=== PATIENT | female | born 1950 | race African-American/Black ===

== ENCOUNTER 2018-09-05 00:04 | Outpatient (CLI) | payer MEDICARE, BC ==
[2018-09-05 14:11] LABS: Bilirubin Negative (Negative); Blood, Urine Trace (Negative); Clarity CLEAR (Clear); Glucose, Urine (Dipstick) Negative (Negative); Leukocyte Negative (Negative); Nitrite Negative (Negative); Protein, Urine (Dipstick) Negative (Neg-Trace); Specific Gravity, Urine 1.015 (1.002-1.036)
[2018-09-05 14:13] LABS: Bacteria/HPF None Seen HPF (None Seen); Hyaline Casts/LPF 0-3 HYALINE CAST LPF (0-3 Hyaline); Pathc Cast-AUWi Flag 0.13 (0-2.49); Squamous Epithelial 0-3 HPF (0-3); WBC/HPF None Seen HPF (0-3)
[2018-09-05 14:15] LABS: #Basophils 0.1 thou/uL (0.0-0.2); #Eosinphils 0.1 thou/uL (0.0-0.7); #Lymphocytes 3.2 thou/uL (1.20-3.40); #Monocytes 0.8 thou/uL (0.11-0.59); #Neutrophils 6.6 thou/uL (1.40-6.50); %Basophils 0.6 % (0.0-1.0); %Eosinophils 1.1 % (0.0-10.0); %Lymphocytes 29.9 % (21.0-51.0); %Monocytes 7.6 % (0.0-10.0); %Neutrophils 60.8 % (42.0-75.0); Hemoglobin 12.6 g/dL (12.0-16.0); Mean Corpuscular HGB CONC 32.5 g/dL (32.0-36.0); Mean Corpuscular Hemoglobin 29.5 pg (27.0-31.0); Mean Corpuscular Volume 90.8 fL (78.0-98.0); Mean Platelet Volume 8.2 fL (7.4-10.4); PTT 29.6 SEC (22.9-36.1); Platelet Count 323 thou/uL (130-400); Prothrombin Time 13.2 SEC (12.0-14.7); RBC Distribution Width 11.6 % (11.5-14.5); Red Blood Cell (RBC) Count 4.26 mill/uL (4.20-5.40); White Blood Cell (WBC) Count 10.8 thou/uL (4.8-10.8)
[2018-09-05 14:31] LABS: Anion Gap 11 mmol/L (10-20); BUN (Urea Nitrogen) 20 mg/dL (9.8-20.1); Calc. Creatinine Clearance 0 mL/min (70-130); Calcium 9.9 mg/dL (7.8-10.44); Carbon Dioxide 26 mmol/L (23-31); Chloride 104 mmol/L (98-107); Estimated GFR-MDRD 89; Glucose 81 mg/dL (80-115); Potassium 3.9 mmol/L (3.5-5.1); Sodium 137 mmol/L (136-145)
== END 2018-09-05 00:05 | disposition home or self-care (01) ==
LOC: LABBT 00:04
PROVIDERS: ATTEND Orthopaedic Surgery
DX: Z01.818 Encounter for other preprocedural examination (principal); M17.12 Unilateral primary osteoarthritis, left knee
CPT/HCPCS: 80048; 81001; 85025; 85610; 85730; 87081; 93005; 93010

== ENCOUNTER 2018-09-10 14:51 | Outpatient (CLI) | payer MEDICARE, BC | END 2018-09-10 14:52 | disposition home or self-care (01) | LOC: LABBT 14:51 | PROVIDERS: ATTEND Orthopaedic Surgery | DX: Z01.812 Encounter for preprocedural laboratory examination (principal); M17.12 Unilateral primary osteoarthritis, left knee | CPT/HCPCS: 86850; 86870; 86900; 86901 ==

== ENCOUNTER 2018-09-16 06:59 | Inpatient (IN) | payer MEDICARE, BC ==
[2018-09-05 12:43] VITALS: BMI 36.9
[2018-09-16] MEDS ORDERED: Vancomycin HCl 1.5 GM in Sodium Chloride 0.9% 250 ML 300 ML IVPB SCH ×2 (07:45→20:00)
[2018-09-16] MEDS ORDERED: Tranexamic Acid 1,000 MG in Sodium Chloride 0.9% 100 ML IVPB SCH (07:45)
[2018-09-16] MEDS ORDERED: Tranexamic Acid 1,000 MG/10 ML VIAL ONE ×2 (08:02→11:33)
[2018-09-16] MEDS ORDERED: Sodium Chloride 0.9% 100 ML ONE (08:02)
[2018-09-16] MEDS ORDERED: Midazolam HCl 2 mg/2 ml Vial ONE (08:03)
[2018-09-16] MEDS ORDERED: Fentanyl 100 MCG/2 ML VIAL ONE ×4 (08:03→12:07)
[2018-09-16] MEDS ORDERED: traMADol HCl 50 MG TAB PO PRN (08:53)
[2018-09-16] MEDS ORDERED: Fentanyl 100 MCG/2 ML VIAL SLOW IVP PRN (08:53)
[2018-09-16] MEDS ORDERED: Ropivacaine HCl/PF 250 ML in Premix Bag 1 BAG NERVE BLCK SCH (08:53)
[2018-09-16] MEDS ORDERED: Promethazine HCl 25 MG/ML VIAL IM PRN ×3 (08:53→11:20)
[2018-09-16] MEDS ORDERED: Zolpidem Tartrate 5 MG TAB PO PRN ×2 (08:53→11:20)
[2018-09-16] MEDS ORDERED: Ondansetron PF 4 MG/2 ML Vial IVP PRN ×2 (08:53→11:20)
[2018-09-16] MEDS ORDERED: HYDROcodone/Acetaminophen 10/325 mg Tablet PO PRN (08:53)
[2018-09-16] MEDS ORDERED: Clindamycin/D5W 600 mg/50 ml Premix Bag ONE (09:05)
[2018-09-16] MEDS ORDERED: Bupivacaine PF 0.5% 30 ML VIAL ONE (09:05)
[2018-09-16] MEDS ORDERED: Promethazine HCl 25 MG/ML VIAL SLOW IVP PRN (10:12)
[2018-09-16] MEDS ORDERED: Ondansetron HCl/PF 4 MG/2 ML Vial IVP PRN (10:12)
[2018-09-16] MEDS ORDERED: Acetaminophen 325 MG TAB PO PRN (11:20)
[2018-09-16] MEDS ORDERED: diphenhydrAMINE 25 MG CAP PO PRN (11:20)
[2018-09-16] MEDS ORDERED: Ipratropium Oral Inhaler (200 INHALATIONS) INH PRN (11:22)
[2018-09-16] MEDS ORDERED: Ketorolac Tromethamine 30 MG/ML VIAL ONE (11:33)
[2018-09-16] MEDS ORDERED: Ropivacaine 0.5% HCl/PF (150 MG/30 ML VIAL) ONE (12:16)
[2018-09-16] MEDS ORDERED: Ropivacaine 0.2% HCl/PF (40 MG/20 ML VIAL) ONE (12:16)
[2018-09-16] MEDS ORDERED: HYDROmorphone 2 MG/ML VIAL ONE (12:17)
[2018-09-16] MEDS ORDERED: Non-Formulary Medication 1 EACH PO PRN (12:25)
[2018-09-16] MEDS ORDERED: HYDROmorphone 2 MG/ML VIAL SLOW IVP PRN (12:25)
[2018-09-16] MEDS ORDERED: Ondansetron PF 4 MG/2 ML Vial ONE (13:22)
[2018-09-16] MEDS ORDERED: Lidocaine 1% PF 5 ML VIAL ONE (13:22)
[2018-09-16] MEDS ORDERED: PROPOFOL 200 MG/20 ML VIAL ONE (13:22)
[2018-09-16] MEDS: Ketorolac Tromethamine 30 MG/ML VIAL IVP SCH ×2 (15:28→18:17)
[2018-09-16] MEDS: Sodium Chloride 0.9% 1,000 ML IV SCH ×2 (15:31→22:40)
[2018-09-16] MEDS: Clindamycin/D5W 900 MG in Premix Bag 1 BAG IVPB SCH ×2 (15:31→21:14)
--- NOTE | 2018-09-16 16:33 | OP ---
DATE OF PROCEDURE: 09/16/2018 PREOPERATIVE DIAGNOSIS: Left knee osteoarthrosis. POSTOPERATIVE DIAGNOSIS: Left knee osteoarthrosis. PROCEDURE PERFORMED: Left total knee replacement using adjust pinless navigation. TURN DOWN WORKER: Jakub Khan PA-C BLOOD LOSS: Minimal. COMPLICATIONS: None. ANESTHESIA: The patient had general anesthetic as well as a local block. IMPLANTS: To the left knee. Femur was a size 3 cruciate-retaining femur with size 3 primary tibial base plate. We used a 3 x 9 mm CS X3 tibial poly and a 29 x 9 asymmetric X3 patella. DISPOSITION: She went to recovery room in stable condition. INDICATIONS: This is a 68-year-old female who has had bad knees for years. She had a right knee replaced a little bit over a year ago. She has done very well from this. At this time, she wished to have her left knee replaced as well. PROCEDURE IN DETAIL: After all appropriate consent forms were explained and signed, the patient was taken back to the operating room and at this time was given general anesthetic. Once the level of anesthesia was appropriate, a well-padded tourniquet was placed on the left leg, and the leg was then prepped and draped in standard surgical fashion. The limb was exsanguinated and tourniquet taken up to 300 mmHg. Midline incision was made with a 10 blade down through the skin and subcutaneous tissue. Bovie electrocautery was used to coagulate any brisk venous bleeding. A new blade was used to make a medial parapatellar arthrotomy. Small subperiosteal release was performed medially and excess fat pad was removed. The knee was flexed up to gain access to the femur. The femur was navigated and distal femoral resection was made. Epicondylar access was used to align our sizing jig and this was pinned in place. We sized our femur to be a 3. 4:1 cutting block was applied and pinned. Anterior and posterior chamfer cuts were then made. We navigated out our proximal tibia and made our proximal tibial resection. Spreaders were used to remove any posterior osteophytes off the back of the femur as well as remaining meniscal tissue. A long alignment fernanda was then used to achieve correct rotation of our tibial baseplate and a size 3 was chosen. This was pinned in place. We trialed the polyethylene and a 3 x 9 mm CS X3 polyethylene gave us full extension and good stability throughout range of motion. Two towel clips and a saw were used to cut our patella. Three lug nuts were drilled and 29 x 9 asymmetric X3 patella was trialed which sat nicely in the trochlear groove. We then drilled our femur and punched our tibia. All components were removed. The knee was thoroughly irrigated and dried. Cement was mixed into the cement gun on the back table. Components were then placed. The knee was held out in full extension until the cement had dried. All excess bone cement was removed. Multiple #2 Vicryl stitches as well as a Quill were used to close our extensor mechanism. 0 Quill followed by a running Monoderm was then used to close the skin. Surgicel glue was then used on the skin. Once this had dried, soft tissue dressing was applied to the limb, tourniquet was let down, and the toes pinked up nicely. The patient was then awakened and taken to the recovery room in stable condition. All counts were correct at the end of the case. The patient did receive preoperative IV antibiotics. The patient was injected with Exparel for postoperative pain relief. Job ID: [id number]
[2018-09-16] MEDS: Aspirin 81 mg Enteric Coated Tablet PO SCH (20:20)
[2018-09-16] MEDS: Fluticasone Propionate Nasal Spray 16 gm Bottle NASAL SCH (20:20)
[2018-09-16] MEDS: traZODone HCl 50 MG TAB PO SCH (22:40)
[2018-09-17] MEDS: Ketorolac Tromethamine 30 MG/ML VIAL IVP SCH ×5 (00:10→22:55)
--- NOTE | 2018-09-17 01:13 | PDOC.PN ---
- Subjective Encounter Start Date: 09/16/18 Encounter Start Time: 18:00 Subjective: Consultation for medical management- Left knee replacement -: Sitting up eating dinner, family at the bedside - Objective Vital Signs & Weight: Vital Signs (12 hours) Temp Pulse Resp BP Pulse Ox 09/17/18 00:00 98.5 F 64 14 148/68 H 100 09/16/18 19:57 97.8 F 61 16 119/58 L 99 09/16/18 17:27 99 09/16/18 17:07 97.5 F L 88 18 139/84 99 09/16/18 15:02 97.5 F L 62 18 120/58 L 100 Weight Weight 100.698 kg I&O: 09/15/18 09/16/18 09/17/18 06:59 06:59 06:59 Intake Total 1200 Output Total 250 Balance 950 Phys Exam - Physical Examination HEENT: PERRLA, moist MMs Neck: no nodes, no JVD Respiratory: clear to auscultation bilateral Cardiovascular: RRR Gastrointestinal: soft, non-tender left knee surgery, fresh bandage Neurological: non-focal Lymphatic: no nodes Psychiatric: normal affect, A&O x 3 Skin: normal turgor, cap refill <2 seconds Dx/Plan (1) Arthritis Code(s): M19.90 - UNSPECIFIED OSTEOARTHRITIS, UNSPECIFIED SITE Status: Chronic (2) Asthma Code(s): J45.909 - UNSPECIFIED ASTHMA, UNCOMPLICATED Status: Chronic (3) CKD (chronic kidney disease) stage 2, GFR 60-89 ml/min Code(s): N18.2 - CHRONIC KIDNEY DISEASE, STAGE 2 (MILD) Status: Chronic (4) Depression Code(s): F32.9 - MAJOR DEPRESSIVE DISORDER, SINGLE EPISODE, UNSPECIFIED Status : Chronic Comment: no suicidal ideation (5) GERD (gastroesophageal reflux disease) Code(s): K21.9 - GASTRO-ESOPHAGEAL REFLUX DISEASE WITHOUT ESOPHAGITIS Status: Chronic (6) HTN (hypertension) Code(s): I10 - ESSENTIAL (PRIMARY) HYPERTENSION Status: Chronic (7) Obesity (BMI 30-39.9) Code(s): E66.9 - OBESITY, UNSPECIFIED Status: Chronic Comment: counselled. - Plan cont current plan of care Consultation for medical management -: Will restart home medications and will monitor * .
[2018-09-17] MEDS: HYDROcodone/Acetaminophen 10/325 mg Tablet PO PRN ×2 (02:09→10:36)
[2018-09-17 06:36] LABS: Hemoglobin 10.7 g/dL (12.0-16.0); Mean Corpuscular Hemoglobin 30.3 pg (27.0-31.0); Mean Corpuscular Volume 91.9 fL (78.0-98.0); Platelet Count 222 thou/uL (130-400); RBC Distribution Width 11.5 % (11.5-14.5); Red Blood Cell (RBC) Count 3.53 mill/uL (4.20-5.40); White Blood Cell (WBC) Count 10.2 thou/uL (4.8-10.8)
[2018-09-17] MEDS: traMADol HCl 50 MG TAB PO PRN (07:12)
[2018-09-17] MEDS: Fluticasone Propionate Nasal Spray 16 gm Bottle NASAL SCH ×2 (07:47→20:46)
[2018-09-17] MEDS: Ubidecarenone 50 MG CAP PO SCH (07:48)
[2018-09-17] MEDS: Aspirin 81 mg Enteric Coated Tablet PO SCH ×2 (07:48→20:45)
[2018-09-17] MEDS: Senokot S 8.6-50 MG TAB PO SCH ×2 (07:48→20:46)
[2018-09-17] MEDS: Multivitamin W/ Minerals 1 TAB PO SCH (07:49)
[2018-09-17] MEDS: Lisinopril 10 MG TAB PO SCH (07:49)
[2018-09-17] MEDS: Atenolol 50 MG TAB PO SCH (07:49)
[2018-09-17] MEDS: Ferrous Gluconate 324 MG TAB PO SCH ×2 (07:49→20:45)
[2018-09-17] MEDS: Sodium Chloride 0.9% 1,000 ML IV SCH ×2 (07:50→18:53)
--- NOTE | 2018-09-17 08:55 | PRG ---
DATE OF SERVICE: 09/17/2018 SUBJECTIVE: Monica is a 68-year-old female postop day 1 left total knee arthroplasty. She is comfortable and quite happy at this point. OBJECTIVE: VITAL SIGNS: Temperature 98.8, pulse 78, respiratory rate 16 and nonlabored, blood pressure 137/76. GENERAL: She is alert and oriented to person, place, time, situation, grossly nonfocal, and appropriate with examiner. EXTREMITIES: Her incision is clean and closed without any erythema and she is neurovascularly intact. Good dorsiflexion, inversion, eversion. LABORATORY DATA: Hemoglobin and hematocrit 10.7 and 32.5. IMPRESSION: 1. A 68-year-old female, postoperative day 1, left total knee arthroplasty. 2. Mild asymptomatic hemorrhagic anemia. PLAN: Continue current care. Probable discharge tomorrow. Job ID: [id number]
[2018-09-17] MEDS ORDERED: Acetaminophen 500 MG TAB PO PRN (09:25)
[2018-09-17] MEDS ORDERED: Diabetic Tussin 200 MG/10 ML UDCUP PO PRN (09:25)
[2018-09-17] MEDS ORDERED: Bisacodyl 5 MG TAB PO PRN (09:25)
[2018-09-17] MEDS ORDERED: Calcium Carbonate 500 MG ChewTAB PO PRN (09:25)
[2018-09-17] MEDS ORDERED: Benzonatate 100 MG CAP PO PRN (09:25)
[2018-09-17] MEDS ORDERED: hydrALAZINE 20 MG/ML VIAL SLOW IVP PRN (09:25)
[2018-09-17] MEDS ORDERED: Cepastat Lozenges 1 LOZ PO PRN (09:25)
[2018-09-17] MEDS: Stress 600 With Zinc 1 TAB PO SCH (12:49)
--- NOTE | 2018-09-17 15:07 | PDOC.PN ---
- Subjective Encounter Start Date: 09/17/18 Encounter Start Time: 15:05 Subjective: feels well .c/o constipation. -: no CP/SOB/N/V/Abd pain/fever/chills -: ambulating multiple times w PT - Objective MAR Reviewed: Yes Vital Signs & Weight: Vital Signs (12 hours) Temp Pulse Resp BP BP Pulse Ox 09/17/18 12:18 98 F 67 18 147/74 H 98 09/17/18 08:00 98 09/17/18 07:49 67 118/70 09/17/18 07:05 98.5 F 67 16 121/57 L 98 09/17/18 04:00 98.8 F 71 16 137/76 97 Weight Admit Weight 222 lb Weight 222 lb I&O: 09/16/18 09/17/18 09/18/18 06:59 06:59 06:59 Intake Total 1200 1080 Output Total 250 700 Balance 950 380 Result Diagrams: 09/17/18 05:04 Phys Exam - Physical Examination Constitutional: NAD HEENT: PERRLA, moist MMs, sclera anicteric, oral pharynx no lesions Neck: no nodes, no JVD, supple, full ROM Respiratory: no wheezing, no rales, no rhonchi, clear to auscultation bilateral Cardiovascular: RRR, no significant murmur, no rub Gastrointestinal: soft, non-tender, no distention, positive bowel sounds Musculoskeletal: no edema, pulses present Neurological: non-focal, normal sensation, moves all 4 limbs Psychiatric: normal affect, A&O x 3 Skin: no rash Dx/Plan (1) HTN (hypertension) Code(s): I10 - ESSENTIAL (PRIMARY) HYPERTENSION Status: Chronic Comment: stable. cont atenolol,Lisinopril.monitor. add prn antihypertensives (2) Arthritis Code(s): M19.90 - UNSPECIFIED OSTEOARTHRITIS, UNSPECIFIED SITE Status: Chronic (3) Asthma Code(s): J45.909 - UNSPECIFIED ASTHMA, UNCOMPLICATED Status: Chronic Comment : stable. Nebs prn (4) CKD (chronic kidney disease) stage 2, GFR 60-89 ml/min Code(s): N18.2 - CHRONIC KIDNEY DISEASE, STAGE 2 (MILD) Status: Chronic Comment: stable (5) Depression Code(s): F32.9 - MAJOR DEPRESSIVE DISORDER, SINGLE EPISODE, UNSPECIFIED Status : Chronic Comment: no suicidal ideation (6) GERD (gastroesophageal reflux disease) Code(s): K21.9 - GASTRO-ESOPHAGEAL REFLUX DISEASE WITHOUT ESOPHAGITIS Status: Chronic (7) Obesity (BMI 30-39.9) Code(s): E66.9 - OBESITY, UNSPECIFIED Status: Chronic Comment: counselled. - Plan PT/OT, incentive spirometry, out of bed/ambulate, DVT proph w/SCDs add laxatives -: am labs -: Hd stable.cont home meds -: IM team will follow. DC anytime from IM stand point * . Review of Systems - Review of Systems Constitutional: negative: fever, chills, sweats, weakness, malaise, other ENT: negative: Ear Pain, Ear Discharge, Nose Pain, Nose Discharge, Nose Congestion, Mouth Pain, Mouth Swelling, Throat Pain, Throat Swelling, Other Respiratory: negative: Cough, Dry, Shortness of Breath, Hemoptysis, SOB with Excertion, Pleuritic Pain, Sputum, Wheezing Cardiovascular: negative: chest pain, palpitations, orthopnea, paroxysmal nocturnal dyspnea, edema, light headedness, other Gastrointestinal: negative: Nausea, Vomiting, Abdominal Pain, Diarrhea, Constipation, Melena, Hematochezia, Other Genitourinary: negative: Dysuria, Frequency, Incontinence, Hematuria, Retention , Other Musculoskeletal: negative: Neck Pain, Shoulder Pain, Arm Pain, Back Pain, Hand Pain, Leg Pain, Foot Pain, Other Neurological: negative: Weakness, Numbness, Incoordination, Change in Speech, Confusion, Seizures, Other - Medications/Allergies Allergies/Adverse Reactions: Allergies Allergy/AdvReac Type Severity Reaction Status Date / Time amlodipine Allergy Verified 09/16/18 14:58 niacin Allergy Verified 09/16/18 14:58 Penicillins Allergy Verified 09/16/18 14:58 Medications: Current Medications Acetaminophen (Tylenol) 650 mg PO Q4H PRN PRN Reason: Headache/Fever or Pain Acetaminophen (Tylenol) 1,000 mg PO Q6H PRN PRN Reason: Mild Pain (1-3) Hydrocodone Bitart/Acetaminophen ([place] 10/325) 1 tab PO Q4H PRN PRN Reason: Pain (1-3) Hydrocodone Bitart/Acetaminophen ([place] 10/325) 2 tab PO Q4H PRN PRN Reason: PAIN (4-6) Last Admin: 09/17/18 10:36 Dose: 2 tab Albuterol/Ipratropium (Duoneb) 3 ml NEB QID PRN PRN Reason: SOB &/or Wheezing Aspirin (Ecotrin) 81 mg PO BID [facility] Last Admin: 09/17/18 07:48 Dose: 81 mg Atenolol (Tenormin) 50 mg PO DAILY [facility] Last Admin: 09/17/18 07:49 Dose: 50 mg Benzonatate (Tessalon) 100 mg PO Q6H PRN PRN Reason: Cough Bisacodyl (Dulcolax) 10 mg PO DAILYPRN PRN PRN Reason: Constipation Calcium Carbonate (Tums) 1,000 mg PO Q4H PRN PRN Reason: Heartburn or Indigestion Cholecalciferol (Vitamin D3) 2,000 units PO QAM [facility] Last Admin: 09/17/18 07:50 Dose: 2,000 units Coenzyme Q10 (Coenzyme Q10) 100 mg PO DAILY [facility] Last Admin: 09/17/18 07:48 Dose: 100 mg Diphenhydramine HCl (Benadryl) 25 mg PO Q6H PRN PRN Reason: Itching Fentanyl (Sublimaze) 50 mcg SLOW IVP Q1H PRN PRN Reason: breakthrough pain Last Admin: 09/17/18 07:37 Dose: 50 mcg Ferrous Gluconate (Fergon) 324 mg PO BID [facility] Last Admin: 09/17/18 07:49 Dose: 324 mg Fluticasone Propionate (Flonase Nasal [place]) 0 gm NASAL BID [facility] Last Admin: 09/17/18 07:47 Dose: 1 spr Guaifenesin (Robitussin Sf) 200 mg PO Q4H PRN PRN Reason: Cough Hydralazine HCl (Apresoline) 10 mg SLOW IVP Q4H PRN PRN Reason: SBP > 180 and HR < 70 Ropivacaine 250 ml/ Device 250 mls @ 10 mls/hr NERVE BLCK INF [facility] Last Admin: 09/17/18 12:41 Dose: 250 mls Sodium Chloride (Normal Saline 0.9%) 1,000 mls @ 100 mls/hr IV .Q10H [facility] Last Admin: 09/17/18 07:50 Dose: Not Given Ipratropium [place] (Atrovent Hfa) 2 puff INH PRN PRN PRN Reason: Wheezing Iron/Minerals/Multivitamins (Theragran M) 1 tab PO DAILY [facility] Last Admin: 09/17/18 07:49 Dose: 1 tab Ketorolac Tromethamine (Toradol) 15 mg IVP Q6HR [facility] Stop: 09/18/18 06:01 Last Admin: 09/17/18 11:25 Dose: 15 mg Lisinopril (Zestril) 10 mg PO QAM [facility] Last Admin: 09/17/18 07:49 Dose: 10 mg Multivitamins/Zinc (Stress 600 With Zinc) 1 tab PO DAILY [facility] Last Admin: 09/17/18 12:49 Dose: 1 tab Ondansetron HCl (Zofran) 4 mg IVP Q6H PRN PRN Reason: Nausea/Vomiting Last Admin: 09/17/18 11:25 Dose: 4 mg Pantoprazole Sodium (Protonix) 40 mg PO DAILY PRN PRN Reason: Indigestion Polyethylene Glycol (Miralax) 17 gm PO DAILYPRN PRN PRN Reason: Constipation Promethazine HCl (Phenergan) 12.5 mg IM Q4H PRN PRN Reason: Nausea/Vomiting Senna/Docusate Sodium (Senokot S) 2 tab PO BID [facility] Last Admin: 09/17/18 07:48 Dose: 2 tab Sodium Chloride (Flush - Normal Saline) 10 ml IVF PRN PRN PRN Reason: Saline Flush Last Admin: 09/17/18 07:50 Dose: 10 ml Throat Lozenges (Cepastat Lozenges) 1 dipak PO Q2H PRN PRN Reason: Sore Throat Tramadol HCl (Ultram) 50 mg PO Q6H PRN PRN Reason: Mild Pain (1-3) Tramadol HCl (Ultram) 100 mg PO Q6H PRN PRN Reason: Moderate Pain 4-6 Last Admin: 09/17/18 07:12 Dose: 100 mg Trazodone HCl (Desyrel) 50 mg PO HS [facility] Last Admin: 09/16/18 22:40 Dose: Not Given Zolpidem Tartrate (Ambien) 5 mg PO HSPRN PRN PRN Reason: Insomnia
[2018-09-17] MEDS: traZODone HCl 50 MG TAB PO SCH (20:46)
[2018-09-18] MEDS: Sodium Chloride 0.9% 1,000 ML IV SCH ×3 (05:12→20:11)
[2018-09-18] MEDS: Ketorolac Tromethamine 30 MG/ML VIAL IVP SCH (05:51)
[2018-09-18] MEDS: traMADol HCl 50 MG TAB PO PRN (06:12)
[2018-09-18 07:42] LABS: Hemoglobin 11.3 g/dL (12.0-16.0); Mean Corpuscular HGB CONC 32.5 g/dL (32.0-36.0); Mean Corpuscular Hemoglobin 29.5 pg (27.0-31.0); Mean Platelet Volume 8.2 fL (7.4-10.4); Platelet Count 229 thou/uL (130-400); RBC Distribution Width 11.5 % (11.5-14.5); Red Blood Cell (RBC) Count 3.82 mill/uL (4.20-5.40); White Blood Cell (WBC) Count 16.3 thou/uL (4.8-10.8)
[2018-09-18] MEDS: Ubidecarenone 50 MG CAP PO SCH (08:45)
[2018-09-18] MEDS: Ferrous Gluconate 324 MG TAB PO SCH ×2 (08:45→20:13)
[2018-09-18] MEDS: Atenolol 50 MG TAB PO SCH (08:45)
[2018-09-18] MEDS: HYDROcodone/Acetaminophen 10/325 mg Tablet PO PRN ×3 (08:46→20:19)
[2018-09-18] MEDS: Senokot S 8.6-50 MG TAB PO SCH ×2 (08:46→20:13)
[2018-09-18] MEDS: Multivitamin W/ Minerals 1 TAB PO SCH (08:46)
[2018-09-18] MEDS: Aspirin 81 mg Enteric Coated Tablet PO SCH ×2 (08:46→20:13)
[2018-09-18 10:14] LABS: ALT (SGPT) 13 U/L (8-55); AST (SGOT) 15 U/L (5-34); Albumin 3.5 g/dL (3.4-4.8); Alkaline Phosphatase 61 U/L (40-150); Anion Gap 13 mmol/L (10-20); BUN (Urea Nitrogen) 12 mg/dL (9.8-20.1); Bilirubin, Total 0.6 mg/dL (0.2-1.2); Calc. Creatinine Clearance 89 mL/min (70-130); Calcium 8.4 mg/dL (7.8-10.44); Carbon Dioxide 23 mmol/L (23-31); Chloride 102 mmol/L (98-107); Estimated GFR-MDRD 71; Globulin 2.3 g/dL (2.4-3.5); Glucose 119 mg/dL (80-115); Protein, Total 5.8 g/dL (6.0-8.3); Sodium 134 mmol/L (136-145)
--- NOTE | 2018-09-18 10:40 | PRG ---
DATE OF SERVICE: 09/18/2018 SUBJECTIVE: Monica is a 68-year-old female, who is postoperative day 2 from left total knee arthroplasty. I believe she has already been scheduled for a postoperative management at [facility]. OBJECTIVE: VITAL SIGNS: Temperature 98.9, pulse 80, respiratory rate 16 and unlabored, blood pressure is 94/75. GENERAL: She is alert, oriented, and spry this morning, responsive and appropriate with examiner. EXTREMITIES: Her incision is clean and closed without any erythema. She is neurovascularly intact in the left lower extremity. LABORATORY DATA: Hemoglobin and hematocrit 11.3 and 34.8. IMPRESSION: 1. A 68-year-old female, postoperative day 2 left total knee arthroplasty. 2. Osteoarthritis. 3. Hypertension. 4. Gastroesophageal reflux disease. 5. Depression. 6. Chronic renal insufficiency, stage 2. PLAN: Continue current care. Transfer tomorrow to skilled facility. Job ID: [id number]
--- NOTE | 2018-09-18 12:45 | PDOC.PN ---
- Subjective Encounter Start Date: 09/18/18 Encounter Start Time: 12:41 Subjective: een & examined during PT -: feels well but still constipated - Objective MAR Reviewed: Yes Vital Signs & Weight: Vital Signs (12 hours) Temp Pulse Resp BP BP Pulse Ox 09/18/18 11:38 98.4 F 58 L 14 136/52 L 93 L 09/18/18 08:45 80 94/75 09/18/18 08:00 93 L 09/18/18 07:29 98.9 F 80 16 94/75 91 L 09/18/18 06:44 99.6 F 09/18/18 04:14 100 F H 77 15 134/63 96 Weight Admit Weight 222 lb Weight 222 lb I&O: 09/17/18 09/18/18 09/19/18 06:59 06:59 06:59 Intake Total 1200 2825 Output Total 250 2325 Balance 950 500 Result Diagrams: 09/18/18 07:28 09/18/18 09:42 Additional Labs: Laboratory Tests 09/05/18 09/17/18 13:32 05:04 Hgb 12.6 10.7 L Phys Exam - Physical Examination Constitutional: NAD HEENT: PERRLA, moist MMs, sclera anicteric, oral pharynx no lesions Neck: no nodes, no JVD, supple, full ROM Respiratory: no wheezing, no rales, no rhonchi, clear to auscultation bilateral Cardiovascular: RRR, no significant murmur Gastrointestinal: soft, non-tender, no distention, positive bowel sounds Musculoskeletal: no edema, pulses present Neurological: non-focal, normal sensation, moves all 4 limbs Psychiatric: normal affect, A&O x 3 Skin: no rash Dx/Plan (1) HTN (hypertension) Code(s): I10 - ESSENTIAL (PRIMARY) HYPERTENSION Status: Chronic Comment: stable. cont atenolol,Lisinopril.monitor. add prn antihypertensives (2) Arthritis Code(s): M19.90 - UNSPECIFIED OSTEOARTHRITIS, UNSPECIFIED SITE Status: Chronic (3) Asthma Code(s): J45.909 - UNSPECIFIED ASTHMA, UNCOMPLICATED Status: Chronic Comment : stable. Nebs prn (4) CKD (chronic kidney disease) stage 2, GFR 60-89 ml/min Code(s): N18.2 - CHRONIC KIDNEY DISEASE, STAGE 2 (MILD) Status: Chronic Comment: stable (5) Depression Code(s): F32.9 - MAJOR DEPRESSIVE DISORDER, SINGLE EPISODE, UNSPECIFIED Status : Chronic Comment: no suicidal ideation (6) GERD (gastroesophageal reflux disease) Code(s): K21.9 - GASTRO-ESOPHAGEAL REFLUX DISEASE WITHOUT ESOPHAGITIS Status: Chronic (7) Obesity (BMI 30-39.9) Code(s): E66.9 - OBESITY, UNSPECIFIED Status: Chronic Comment: counselled. - Plan DVT proph w/SCDs encouraged to ask for Miralax today.didn't get yesterday -: HD stable -: am labs -: DC anytime from IM stand point -: monitor H/h.expected drop post-op * . Review of Systems - Review of Systems Constitutional: negative: fever, chills, sweats, weakness, malaise, other ENT: negative: Ear Pain, Ear Discharge, Nose Pain, Nose Discharge, Nose Congestion, Mouth Pain, Mouth Swelling, Throat Pain, Throat Swelling, Other Respiratory: negative: Cough, Dry, Shortness of Breath, Hemoptysis, SOB with Excertion, Pleuritic Pain, Sputum, Wheezing Cardiovascular: negative: chest pain, palpitations, orthopnea, paroxysmal nocturnal dyspnea, edema, light headedness, other Gastrointestinal: Constipation. negative: Nausea, Vomiting, Abdominal Pain, Diarrhea, Melena, Hematochezia, Other Genitourinary: negative: Dysuria, Frequency, Incontinence, Hematuria, Retention , Other Musculoskeletal: negative: Neck Pain, Shoulder Pain, Arm Pain, Back Pain, Hand Pain, Leg Pain, Foot Pain, Other Neurological: negative: Weakness, Numbness, Incoordination, Change in Speech, Confusion, Seizures, Other - Medications/Allergies Allergies/Adverse Reactions: Allergies Allergy/AdvReac Type Severity Reaction Status Date / Time amlodipine Allergy Verified 09/16/18 14:58 niacin Allergy Verified 09/16/18 14:58 Penicillins Allergy Verified 09/16/18 14:58 Medications: Current Medications Acetaminophen (Tylenol) 650 mg PO Q4H PRN PRN Reason: Headache/Fever or Pain Acetaminophen (Tylenol) 1,000 mg PO Q6H PRN PRN Reason: Mild Pain (1-3) Hydrocodone Bitart/Acetaminophen ([place] 10/325) 1 tab PO Q4H PRN PRN Reason: Pain (1-3) Hydrocodone Bitart/Acetaminophen ([place] 10/325) 2 tab PO Q4H PRN PRN Reason: PAIN (4-6) Last Admin: 09/18/18 08:46 Dose: 2 tab Albuterol/Ipratropium (Duoneb) 3 ml NEB QID PRN PRN Reason: SOB &/or Wheezing Aspirin (Ecotrin) 81 mg PO BID [facility] Last Admin: 09/18/18 08:46 Dose: 81 mg Atenolol (Tenormin) 50 mg PO DAILY [facility] Last Admin: 09/18/18 08:45 Dose: 50 mg Benzonatate (Tessalon) 100 mg PO Q6H PRN PRN Reason: Cough Bisacodyl (Dulcolax) 10 mg PO DAILYPRN PRN PRN Reason: Constipation Calcium Carbonate (Tums) 1,000 mg PO Q4H PRN PRN Reason: Heartburn or Indigestion Cholecalciferol (Vitamin D3) 2,000 units PO QAM [facility] Last Admin: 09/18/18 08:45 Dose: 2,000 units Coenzyme Q10 (Coenzyme Q10) 100 mg PO DAILY [facility] Last Admin: 09/18/18 08:45 Dose: 100 mg Diphenhydramine HCl (Benadryl) 25 mg PO Q6H PRN PRN Reason: Itching Fentanyl (Sublimaze) 50 mcg SLOW IVP Q1H PRN PRN Reason: breakthrough pain Last Admin: 09/17/18 07:37 Dose: 50 mcg Ferrous Gluconate (Fergon) 324 mg PO BID [facility] Last Admin: 09/18/18 08:45 Dose: 324 mg Fluticasone Propionate (Flonase Nasal [place]) 0 gm NASAL BID [facility] Last Admin: 09/17/18 20:46 Dose: Not Given Guaifenesin (Robitussin Sf) 200 mg PO Q4H PRN PRN Reason: Cough Hydralazine HCl (Apresoline) 10 mg SLOW IVP Q4H PRN PRN Reason: SBP > 180 and HR < 70 Ropivacaine 250 ml/ Device 250 mls @ 10 mls/hr NERVE BLCK INF [facility] Last Admin: 09/17/18 12:41 Dose: 250 mls Sodium Chloride (Normal Saline 0.9%) 1,000 mls @ 100 mls/hr IV .Q10H [facility] Last Admin: 09/18/18 05:12 Dose: Not Given Ipratropium [place] (Atrovent Hfa) 2 puff INH PRN PRN PRN Reason: Wheezing Iron/Minerals/Multivitamins (Theragran M) 1 tab PO DAILY [facility] Last Admin: 09/18/18 08:46 Dose: 1 tab Lisinopril (Zestril) 10 mg PO QAM [facility] Last Admin: 09/17/18 07:49 Dose: 10 mg Multivitamins/Zinc (Stress 600 With Zinc) 1 tab PO DAILY [facility] Last Admin: 09/17/18 12:49 Dose: 1 tab Ondansetron HCl (Zofran) 4 mg IVP Q6H PRN PRN Reason: Nausea/Vomiting Last Admin: 09/17/18 11:25 Dose: 4 mg Pantoprazole Sodium (Protonix) 40 mg PO DAILY PRN PRN Reason: Indigestion Polyethylene Glycol (Miralax) 17 gm PO DAILYPRN PRN PRN Reason: Constipation Promethazine HCl (Phenergan) 12.5 mg IM Q4H PRN PRN Reason: Nausea/Vomiting Senna/Docusate Sodium (Senokot S) 2 tab PO BID [facility] Last Admin: 09/18/18 08:46 Dose: 2 tab Sodium Chloride (Flush - Normal Saline) 10 ml IVF PRN PRN PRN Reason: Saline Flush Last Admin: 09/17/18 17:38 Dose: 10 ml Throat Lozenges (Cepastat Lozenges) 1 dipak PO Q2H PRN PRN Reason: Sore Throat Tramadol HCl (Ultram) 50 mg PO Q6H PRN PRN Reason: Mild Pain (1-3) Tramadol HCl (Ultram) 100 mg PO Q6H PRN PRN Reason: Moderate Pain 4-6 Last Admin: 09/18/18 06:12 Dose: 100 mg Trazodone HCl (Desyrel) 50 mg PO HS [facility] Last Admin: 09/17/18 20:46 Dose: 50 mg Zolpidem Tartrate (Ambien) 5 mg PO HSPRN PRN PRN Reason: Insomnia
[2018-09-18] MEDS: Polyethylene Glycol 3350 17 GM Packet PO PRN (14:24)
[2018-09-18] MEDS: Lisinopril 10 MG TAB PO SCH (14:26)
[2018-09-18] MEDS: Fluticasone Propionate Nasal Spray 16 gm Bottle NASAL SCH ×2 (14:27→20:14)
[2018-09-18] MEDS: Stress 600 With Zinc 1 TAB PO SCH (14:28)
[2018-09-18] MEDS: traZODone HCl 50 MG TAB PO SCH (20:13)
[2018-09-19] MEDS: HYDROcodone/Acetaminophen 10/325 mg Tablet PO PRN ×3 (02:34→14:01)
[2018-09-19 06:04] LABS: Hemoglobin 10.8 g/dL (12.0-16.0); Mean Corpuscular HGB CONC 32.9 g/dL (32.0-36.0); Mean Corpuscular Volume 90.9 fL (78.0-98.0); Mean Platelet Volume 8.1 fL (7.4-10.4); Platelet Count 205 thou/uL (130-400); RBC Distribution Width 11.5 % (11.5-14.5)
[2018-09-19] MEDS: Atenolol 50 MG TAB PO SCH ×2 (09:36→12:22)
[2018-09-19] MEDS: Ferrous Gluconate 324 MG TAB PO SCH (09:36)
[2018-09-19] MEDS: Multivitamin W/ Minerals 1 TAB PO SCH (09:36)
[2018-09-19] MEDS: Lisinopril 10 MG TAB PO SCH (09:37)
[2018-09-19] MEDS: Senokot S 8.6-50 MG TAB PO SCH (09:37)
[2018-09-19] MEDS: Ubidecarenone 50 MG CAP PO SCH (09:37)
[2018-09-19] MEDS: Fluticasone Propionate Nasal Spray 16 gm Bottle NASAL SCH (09:39)
[2018-09-19] MEDS: Polyethylene Glycol 3350 17 GM Packet PO PRN (09:43)
[2018-09-19] MEDS: Stress 600 With Zinc 1 TAB PO SCH (12:20)
[2018-09-19] MEDS: Sodium Chloride 0.9% 1,000 ML IV SCH (12:21)
[2018-09-19] MEDS: Aspirin 81 mg Enteric Coated Tablet PO SCH (12:22)
[2018-09-19 12:23] VITALS: BP 119/80
[2018-09-19 12:28] VITALS: TEMP 98.2
--- NOTE | 2018-09-19 14:46 | PDOC.EVN ---
Event Note - Event Note Event Note: Went to see the patient but she is participating in group PT. DC orders noted by primary team chart reviewed/ PT HD stable.Labs OK OK to DC from IM stand point
== END 2018-09-19 14:20 | DRG 470 ==
LOC: SDC 06:59 → SJJU 13:54
PROVIDERS: ADMIT Orthopaedic Surgery; ATTEND Orthopaedic Surgery
PROC: 0SRD0J9 Replacement of Left Knee Joint with Synthetic Substitute, Cemented, Open Approach (ICD-10-PCS; principal; 2018-09-16)
DX: M17.12 Unilateral primary osteoarthritis, left knee (principal); J45.909 Unspecified asthma, uncomplicated; N18.2 Chronic kidney disease, stage 2 (mild); K21.9 Gastro-esophageal reflux disease without esophagitis; I12.9 Hypertensive chronic kidney disease with stage 1 through stage 4 chronic kidney disease, or unspecified chronic kidney disease; E66.9 Obesity, unspecified; F32.9 Major depressive disorder, single episode, unspecified; D64.9 Anemia, unspecified; K59.00 Constipation, unspecified; Z90.710 Acquired absence of both cervix and uterus; Z68.36 Body mass index [BMI] 36.0-36.9, adult; Z88.0 Allergy status to penicillin; Z88.6 Allergy status to analgesic agent; Z88.8 Allergy status to other drugs, medicaments and biological substances; Z79.82 Long term (current) use of aspirin
CPT/HCPCS: 36415; 80053; 85027; 86850; 86870; 86900; 86901; 86922; C1713; C1776; J1170; J1885; J2001; J2250; J2405; J2704; J2795; J3010; J3370; J3490; J7050; S0020

== ENCOUNTER 2021-01-07 10:11 | Outpatient (CLI) | payer MEDICARE, BC ==
[2021-01-07 12:25] LABS: #Basophils 0.1 10x3/uL (0.0-0.2); #Eosinphils 0.2 10x3/uL (0.0-0.5); #Monocytes 0.9 10x3/uL (0.0-1.1); %Basophils 0.7 % (0.0-2.0); %Eosinophils 1.6 % (0.0-6.0); %Lymphocytes 28.7 % (18.0-47.0); %Monocytes 8.5 % (0.0-10.0); %Neutrophils 60.1 % (40.0-75.0); Hemoglobin 12.6 g/dL (12.0-15.5); Mean Corpuscular HGB CONC 31.3 g/dL (32.0-36.0); Mean Corpuscular Hemoglobin 28.5 pg (27.0-33.0); Mean Corpuscular Volume 91.2 fl (81.6-98.3); Platelet Count 153 10x3/uL (150-450); Red Blood Cell (RBC) Count 4.42 10x6/uL (3.90-5.03)
[2021-01-07 12:35] LABS: Anion Gap 17 mmol/L (10-20); BUN (Urea Nitrogen) 25 mg/dL (9.8-20.1); Calc. Creatinine Clearance 0 mL/min (70-130); Calcium 9.6 mg/dL (7.8-10.44); Carbon Dioxide 21 mmol/L (23-31); Chloride 106 mmol/L (98-107); Glucose 82 mg/dL (83-110); Potassium 4.5 mmol/L (3.5-5.1); Sodium 139 mmol/L (136-145)
[2021-01-09 00:14] LABS: SARS-CoV-2 PCR by NAA Not Detected (NotDetected)
== END 2021-01-07 10:12 | disposition home or self-care (01) ==
LOC: LABBT 10:11
PROVIDERS: ATTEND Orthopaedic Surgery
DX: Z01.818 Encounter for other preprocedural examination (principal); S46.011A Strain of muscle(s) and tendon(s) of the rotator cuff of right shoulder, initial encounter; Z20.822 Contact with and (suspected) exposure to COVID-19
CPT/HCPCS: 71046; 80048; 85025; 93005; U0003; U0005; 93010

== ENCOUNTER 2021-01-12 07:16 | Day surgery (SDC) | payer MEDICARE, BC ==
[2021-01-11 11:20] VITALS: BMI 38.2
[2021-01-12] MEDS ORDERED: Vancomycin HCl 1.5 GM in Sodium Chloride 0.9% 250 ML 300 ML IVPB SCH (08:00)
[2021-01-12] MEDS ORDERED: Clindamycin/D5W 600 MG in Premix Bag 1 BAG IVPB SCH (08:00)
[2021-01-12] MEDS ORDERED: Fentanyl 100 MCG/2 ML VIAL ONE ×2 (08:01)
[2021-01-12] MEDS ORDERED: Midazolam HCl 2 mg/2 ml Vial ONE (08:01)
[2021-01-12] MEDS ORDERED: Sodium Chloride 0.9% 10 ML ONE (08:10)
[2021-01-12] MEDS ORDERED: Clindamycin/D5W 600 mg/50 ml Premix Bag ONE (08:29)
[2021-01-12] MEDS ORDERED: Lidocaine 2% Jelly 5 ML TUBE ONE (08:37)
[2021-01-12] MEDS ORDERED: Dexamethasone 20 MG/5 ML VIAL ONE (08:39)
[2021-01-12] MEDS ORDERED: PHENYLEPHRINE-NS 100 MCG/ML 10 ML SYRINGE ONE (08:39)
[2021-01-12] MEDS ORDERED: Ropivacaine 0.5% HCl/PF (150 MG/30 ML VIAL) ONE (08:39)
[2021-01-12] MEDS ORDERED: PROPOFOL 200 MG/20 ML VIAL ONE (08:39)
[2021-01-12] MEDS ORDERED: ePHEDrine 50 MG/ML VIAL ONE (08:39)
[2021-01-12] MEDS ORDERED: Ondansetron PF 4 MG/2 ML Vial ONE (08:39)
[2021-01-12] MEDS ORDERED: Rocuronium Bromide 10 MG/ML (10ML VIAL) ONE (08:39)
[2021-01-12] MEDS ORDERED: Phenylephrine 10 MG/ML VIAL ONE (09:06)
[2021-01-12] MEDS ORDERED: Zolpidem Tartrate 5 MG TAB PO PRN (11:00)
[2021-01-12] MEDS ORDERED: HYDROcodone/Acetaminophen 5/325 mg Tablet PO PRN ×2 (11:00)
[2021-01-12] MEDS ORDERED: Ropivacaine 0.2% 550 ML 550 ML NERVE BLCK SCH (11:00)
[2021-01-12] MEDS ORDERED: Ondansetron PF 4 MG/2 ML Vial IVP PRN (11:00)
[2021-01-12] MEDS ORDERED: Promethazine HCl 25 MG/ML VIAL IM PRN (11:00)
[2021-01-12] MEDS ORDERED: Ketorolac Tromethamine 30 MG/ML VIAL IVP PRN (11:00)
[2021-01-12] MEDS ORDERED: traMADol HCl 50 MG TAB PO PRN ×2 (11:00)
== END 2021-01-12 13:35 | disposition home or self-care (01) ==
LOC: SDC 07:16
PROVIDERS: ATTEND Orthopaedic Surgery
PROC: 0LQ10ZZ Repair Right Shoulder Tendon, Open Approach (ICD-10-PCS; principal; 2021-01-12)
PROC: 0LS30ZZ Reposition Right Upper Arm Tendon, Open Approach (ICD-10-PCS; 2021-01-12)
PROC: 0RHJ04Z Insertion of Internal Fixation Device into Right Shoulder Joint, Open Approach (ICD-10-PCS; 2021-01-12)
PROC: 3E0T3BZ Introduction of Anesthetic Agent into Peripheral Nerves and Plexi, Percutaneous Approach (ICD-10-PCS; 2021-01-12)
DX: S46.011A Strain of muscle(s) and tendon(s) of the rotator cuff of right shoulder, initial encounter (principal); M19.011 Primary osteoarthritis, right shoulder; I10 Essential (primary) hypertension; J45.909 Unspecified asthma, uncomplicated; K21.9 Gastro-esophageal reflux disease without esophagitis; Z79.899 Other long term (current) drug therapy; Z88.0 Allergy status to penicillin; Z88.8 Allergy status to other drugs, medicaments and biological substances; W00.9XXA Unspecified fall due to ice and snow, initial encounter
CPT/HCPCS: 23410; 23430; 64416; A4306; C1713; J1100; J2250; J2370; J2405; J2704; J2795; J3010; J3370; J3490; J7050

== ENCOUNTER 2023-05-24 14:14 | Emergency (ER) | payer MEDICARE, BC ==
[2023-05-24] MEDS ORDERED: HYDROcodone/Acetaminophen 5/325 mg Tablet ONE (17:05)
== END 2023-05-24 17:34 | disposition home or self-care (01) ==
LOC: ERS 14:14
DX: S80.02XA Contusion of left knee, initial encounter (principal); S80.01XA Contusion of right knee, initial encounter; I10 Essential (primary) hypertension; E78.5 Hyperlipidemia, unspecified; J45.909 Unspecified asthma, uncomplicated; W19.XXXA Unspecified fall, initial encounter; Z87.891 Personal history of nicotine dependence; Z79.899 Other long term (current) drug therapy